=== PATIENT | male | born 1940 | race Caucasian/White ===

== ENCOUNTER 2019-03-12 05:40 | Inpatient (IN) | payer MEDICARE ==
[2019-03-07 15:26] LABS: BASOPHILS % (AUTO) 0.5 % (0-1); EOSINOPHILS # (AUTO) 0.4 X10'3 (0-0.9); EOSINOPHILS % (AUTO) 5.8 % (0-6); LYMPHOCYTES % (AUTO) 13.2 % (21-51); MEAN CORPUSCULAR HEMOGLOBIN 32.1 PG (27.0-31.0); MEAN CORPUSCULAR HGB CONC 33.6 g/dL (33.0-36.5); MEAN CORPUSCULAR VOLUME 95.6 FL (78-98); MEAN PLATELET VOLUME 7.5 FL (7.4-10.4); MONOCYTES % (AUTO) 13.6 % (2-12); NEUTROPHILS # (AUTO) 4.9 X10'3 (1.8-7.7); NEUTROPHILS % (AUTO) 66.9 % (42-75); PRE OP HEMATOCRIT 41.6 % (42.0-52.0); PRE OP PLATELET COUNT 214 X10'3 (140-440); RED BLOOD COUNT 4.36 X10'6 (4.70-6.10); RED CELL DISTRIBUTION WIDTH 13.7 % (11.5-14.5)
[2019-03-07 15:40] LABS: ALBUMIN 3.8 G/DL (3.4-5.0); ALBUMIN/GLOBULIN RATIO 0.9 (1.1-1.5); ALKALINE PHOSPHATASE 55 IU/L (46-116); BLOOD UREA NITROGEN 22 MG/DL (7-18); BUN/CREATININE RATIO 21.8 (5.4-32.0); CALCIUM 9.8 MG/DL (8.5-10.1); CHLORIDE 107 MMOL/L (99-107); CREATININE 1.01 MG/DL (0.60-1.10); PRE OP ALT 29 U/L (30-65); PRE OP ANION GAP 9 (8-16); PRE OP AST 18 U/L (10-37); PRE OP BILIRUB, TOTAL 0.3 MG/DL (0.0-1.0); PRE OP GLUCOSE 117 MG/DL (70-104); PRE OP POTASSIUM 3.9 MMOL/L (3.4-5.1); PRE OP SODIUM 143 MMOL/L (135-145); TOTAL CARBON DIOXIDE 26.9 MMOL/L (24-32); eGFR 72 ML/MIN
[~2019-03-12] VITALS: Ht 175.3 cm; Wt 88.5 kg
[2019-03-12] VITALS (18 sets, daily range): BP systolic 97–118; BP diastolic 58–78
[~2019-03-12 05:40] MED LIST: ALEN70TA60 PO; AMLO10TA PO; FINA5TAB11 PO; FLO0.4C PO; cefazolin/dext.iso 2gm/50ml 50 ML IV ONE; famotidine 20mg tablet PO ONE; ringers solution, lacted 1,000 ML IV SCH; tranexamic acid inj. 1,000 MG in normal saline 100 ML IV ONE; vancomycin inj 1,500 MG in normal saline 300ml IV soln IV ONE
[2019-03-12] MEDS ORDERED: LIDOcaine 1% (10mg/ml) 2ml vial ONE (06:03)
[2019-03-12] MEDS ORDERED: ketorolac trometh. 30mg/ml inj. ONE (07:37)
[2019-03-12] MEDS ORDERED: epiNEPHrine 1 mg/ml inj ONE (07:37)
[2019-03-12] MEDS ORDERED: ceFAZolin 1000mg inj ONE (07:38)
[2019-03-12] MEDS ORDERED: morphine 10mg/ml inj. ONE (07:38)
[2019-03-12] MEDS ORDERED: vancomycin 1,000mg inj ONE (07:38)
[2019-03-12] MEDS ORDERED: ROPIVAcaine 0.5% (5mg/ml) 30ml vial ONE ×2 (07:38→10:48)
[2019-03-12] MEDS ORDERED: mineral oil 10ml sterile, topical TP ONE (08:00)
[2019-03-12] MEDS ORDERED: MIDAZolam 1mg/ml 10ml vial ONE (08:02)
[2019-03-12] MEDS ORDERED: fentaNYL/PF 50MCG/1 ML 2ML syringe ONE ×2 (08:02→10:45)
[2019-03-12] MEDS ORDERED: ringers solution, lacted 1,000 ML IV SCH (09:03)
[2019-03-12] MEDS ORDERED: ondansetron/PF 4mg/2ml inj IV PRN ×2 (09:05→12:10)
[2019-03-12] MEDS ORDERED: meperidine/PF 25mg/ml syringe IV PRN ×3 (09:05)
[2019-03-12] MEDS ORDERED: proCHLORperazine 10 MG/2 ml inj IV PRN (09:05)
[2019-03-12] MEDS ORDERED: morphine 4 MG/ML inj SYRINge IV PRN ×2 (09:05)
[2019-03-12] MEDS ORDERED: Thrombin (Bovine) 5,000 unit vial TP ONE (09:22)
[2019-03-12] MEDS ORDERED: calcium chloride 100 MG/1 ML inj IV ONE (09:23)
[2019-03-12] MEDS ORDERED: LIDOcaine 1%/PF 5ML 10 MG/ML VIAL ONE (10:47)
[2019-03-12] MEDS ORDERED: propofol inj 20 ML IV ONE (10:47)
--- NOTE | 2019-03-12 11:42 | NUR ---
ARRIVED IN PACU VIA BED FROM OR. DR WILLIS IN ATTENDANCE. REPORT RECEIVED. VS STABLE. PT SLEEPY. MOVES ALL TOES AND FULL SENSATION TO FEET PRESENT. FEET WARM AND PINK. ONLY C/O MILD PAIN ANTERIOR KNEE.
--- NOTE | 2019-03-12 12:08 | NUR ---
SLEEPING COMFORTABLY. VS STABLE
[2019-03-12] MEDS ORDERED: magnesium hydroxide 30ml (MOM) UD suspension PO PRN (12:10)
[2019-03-12] MEDS ORDERED: bisacodyl 10mg suppository rectal RC PRN (12:10)
[2019-03-12] MEDS ORDERED: diphenhydrAMINE 25mg capsule PO PRN ×2 (12:10)
[2019-03-12] MEDS ORDERED: HYDROmorphone 1 mg/ml syringe IV PRN (12:10)
[2019-03-12] MEDS ORDERED: acetaminophen 325mg tablet PO PRN (12:10)
[2019-03-12] MEDS ORDERED: HYDROmorphone inj. 0.5 MG/0.5 ML DISP.SYRIN IV PRN (12:10)
[2019-03-12] MEDS: ROPIVAcaine 0.2%/PF PAIN PUMP 550 ML ADDCANAL SCH (12:34)
[2019-03-12] MEDS ORDERED: ketorolac trometh. 30mg/ml inj. IV ONE (12:40)
[2019-03-12] MEDS ORDERED: acetaminophen 1,000mg/100ml IV 100 ML IV ONE (12:40)
--- NOTE | 2019-03-12 13:02 | NUR ---
PAIN IMPROVED. VS STABLE ON ARRIVAL TO ROOM. TO FLOOR, NURSE IN ROOM TO ACCEPT PT
--- NOTE | 2019-03-12 13:02 | NUR ---
TEMP 36.4
[2019-03-12] MEDS: gabapentin 300mg capsule PO SCH ×2 (14:19→20:24)
[2019-03-12] MEDS: acetaminophen 325mg tablet PO SCH ×2 (14:21→20:00)
[2019-03-12] MEDS: potassium cl 20mEq in 1/2 NS 1,000 ML IV SCH ×2 (16:00→20:07)
[2019-03-12] MEDS: ceFAZolin 1GM/D5W- ADD-VANTAGE 50 ML IV SCH ×2 (16:08→23:45)
--- NOTE | 2019-03-12 18:25 | NUR ---
Received report from Bj ROGERS, assumed care of patient.
--- NOTE | 2019-03-12 18:25 | NUR ---
Problems reprioritized. Patient report given, questions answered & plan of care reviewed with Willow Perea RN.
[2019-03-12] MEDS ORDERED: vancomycin/NS 1 GM ADD-VANTAGE 250 ML IV SCH (20:00)
[2019-03-12] MEDS: sennosides 8.6mg tablet PO SCH (20:24)
--- NOTE | 2019-03-12 20:28 | NUR ---
Tylenol held at this time r/t patient meeting daily max dose.
[2019-03-13 02:00] VITALS: BP 120/74
[2019-03-13] MEDS: acetaminophen 325mg tablet PO SCH ×4 (02:00→20:26)
[2019-03-13] MEDS ORDERED: non-formulary drug (Alendronate Sodium* (Fosamax*) 1 TABLET) PO SCH (02:35)
[2019-03-13] MEDS: potassium cl 20mEq in 1/2 NS 1,000 ML IV SCH ×2 (02:46→13:18)
[2019-03-13] MEDS: oxyCODONE IR 5mg (immed. release) tablet PO PRN ×3 (05:12→20:27)
[2019-03-13 06:00] VITALS: BP 128/76
[2019-03-13 06:14] LABS: BASOPHILS % (AUTO) 0.1 % (0-1); EOSINOPHILS % (AUTO) 0.3 % (0-6); HEMATOCRIT 31.8 % (42.0-52.0); HEMOGLOBIN 10.8 g/dl (14.0-17.9); LYMPHOCYTES # (AUTO) 0.6 X10'3 (1.1-4.8); LYMPHOCYTES % (AUTO) 6.2 % (21-51); MEAN CORPUSCULAR HEMOGLOBIN 32.5 PG (27.0-31.0); MEAN CORPUSCULAR HGB CONC 33.9 g/dL (33.0-36.5); MEAN PLATELET VOLUME 8.2 FL (7.4-10.4); MONOCYTES # (AUTO) 1.4 X10'3 (0-0.9); MONOCYTES % (AUTO) 13.8 % (2-12); NEUTROPHILS # (AUTO) 8.2 X10'3 (1.8-7.7); NEUTROPHILS % (AUTO) 79.6 % (42-75); PLATELET COUNT 171 X10'3 (140-440); RED BLOOD COUNT 3.32 X10'6 (4.70-6.10); RED CELL DISTRIBUTION WIDTH 13.5 % (11.5-14.5); WHITE BLOOD COUNT 10.3 X10'3 (4.5-11.0)
--- NOTE | 2019-03-13 06:14 | NUR ---
Report given to Raffy ROGERS. Addendum: 03/13/19 at 0620 by Willow Vora RN Report given to Bj ROGERS not Raffy ROGERS.
[2019-03-13 06:35] LABS: ANION GAP 7 (8-16); CHLORIDE 108 MMOL/L (99-107); SODIUM 141 MMOL/L (135-145); TOTAL CARBON DIOXIDE 26.2 MMOL/L (24-32)
--- NOTE | 2019-03-13 06:58 | NUR ---
Patient in room ORTHO 4016. I have received report from Willow Perea RN and had the opportunity to ask questions and assume patient care.
[2019-03-13] MEDS: gabapentin 300mg capsule PO SCH ×3 (07:32→20:26)
[2019-03-13] MEDS: finasteride 5mg tablet PO SCH (07:32)
[2019-03-13] MEDS: amLODIPine 5mg tablet PO SCH (07:33)
[2019-03-13] MEDS: enoxaparin 40mg/0.4ml syringe SQ SCH (07:36)
[2019-03-13 09:49] VITALS: BP 130/68
--- NOTE | 2019-03-13 12:00 | NUR ---
f/c d/c per orthopedic DR, will continue to monitor
[2019-03-13 14:04] VITALS: BP 132/69
[2019-03-13 18:00] VITALS: BP 125/70
--- NOTE | 2019-03-13 18:30 | NUR ---
Received report from Bj ROGERS. assumed care of patient
--- NOTE | 2019-03-13 18:42 | NUR ---
Problems reprioritized. Patient report given, questions answered & plan of care reviewed with Lainey RN.
[2019-03-13] MEDS: sennosides 8.6mg tablet PO SCH (20:25)
[2019-03-13] MEDS: celeCOXIB 100mg capsule PO SCH (20:26)
[2019-03-13] MEDS: tamsulosin 0.4mg capsule PO SCH (20:26)
[2019-03-13 22:00] VITALS: BP 129/67
[2019-03-14] MEDS: acetaminophen 325mg tablet PO SCH ×2 (01:57→08:39)
[2019-03-14] MEDS: oxyCODONE IR 5mg (immed. release) tablet PO PRN ×2 (04:21→08:49)
[2019-03-14 05:19] LABS: BASOPHILS % (AUTO) 0.2 % (0-1); EOSINOPHILS # (AUTO) 0.3 X10'3 (0-0.9); HEMATOCRIT 28.7 % (42.0-52.0); HEMOGLOBIN 9.8 g/dl (14.0-17.9); LYMPHOCYTES # (AUTO) 0.8 X10'3 (1.1-4.8); LYMPHOCYTES % (AUTO) 9.4 % (21-51); MEAN CORPUSCULAR HEMOGLOBIN 32.9 PG (27.0-31.0); MEAN CORPUSCULAR HGB CONC 34.1 g/dL (33.0-36.5); MEAN CORPUSCULAR VOLUME 96.6 FL (78-98); MEAN PLATELET VOLUME 7.9 FL (7.4-10.4); MONOCYTES # (AUTO) 1.5 X10'3 (0-0.9); NEUTROPHILS # (AUTO) 5.7 X10'3 (1.8-7.7); NEUTROPHILS % (AUTO) 68.4 % (42-75); PLATELET COUNT 138 X10'3 (140-440); RED BLOOD COUNT 2.97 X10'6 (4.70-6.10); RED CELL DISTRIBUTION WIDTH 13.5 % (11.5-14.5); WHITE BLOOD COUNT 8.3 X10'3 (4.5-11.0)
[2019-03-14 06:00] VITALS: BP 152/68
--- NOTE | 2019-03-14 06:15 | NUR ---
Patient in room ORTHO 4016. I have received report from [facility] and had the opportunity to ask questions and assume patient care.
--- NOTE | 2019-03-14 06:20 | NUR ---
Gave report to Lianne ROGERS.
[2019-03-14 08:37] VITALS: BP 144/70
[2019-03-14] MEDS: amLODIPine 5mg tablet PO SCH (08:38)
[2019-03-14] MEDS: gabapentin 300mg capsule PO SCH ×3 (08:38→20:08)
[2019-03-14] MEDS: celeCOXIB 100mg capsule PO SCH ×2 (08:38→20:08)
[2019-03-14] MEDS: finasteride 5mg tablet PO SCH (08:39)
[2019-03-14] MEDS: enoxaparin 40mg/0.4ml syringe SQ SCH (08:41)
[2019-03-14 10:00] VITALS: BP 118/64
[2019-03-14] MEDS: ROPIVAcaine 0.2%/PF PAIN PUMP 550 ML ADDCANAL SCH (11:03)
[2019-03-14] MEDS ORDERED: acetaminophen 325mg tablet PO PRN (12:10)
--- NOTE | 2019-03-14 16:24 | NUR ---
CPM was on for 2 hours. Removed CPM.
[2019-03-14 17:00] VITALS: BP 113/63
--- NOTE | 2019-03-14 18:00 | NUR ---
Received report from Lianne ROGERS. Assumed care of patient
--- NOTE | 2019-03-14 18:03 | NUR ---
Problems reprioritized. Patient report given, questions answered & plan of care reviewed with Lainey.
--- NOTE | 2019-03-14 20:00 | NUR ---
Offered patient milk of magnesia. patient declined at this time.
[2019-03-14] MEDS: tamsulosin 0.4mg capsule PO SCH (20:08)
[2019-03-14] MEDS: sennosides 8.6mg tablet PO SCH (20:09)
[2019-03-14 22:00] VITALS: BP 128/60
[2019-03-15] MEDS: ROPIVAcaine 0.2%/PF PAIN PUMP 550 ML ADDCANAL SCH (03:54)
[2019-03-15 05:15] LABS: BASOPHILS % (AUTO) 0.2 % (0-1); EOSINOPHILS # (AUTO) 0.3 X10'3 (0-0.9); EOSINOPHILS % (AUTO) 3.8 % (0-6); HEMATOCRIT 26.7 % (42.0-52.0); HEMOGLOBIN 9.1 g/dl (14.0-17.9); LYMPHOCYTES # (AUTO) 0.8 X10'3 (1.1-4.8); LYMPHOCYTES % (AUTO) 8.8 % (21-51); MEAN CORPUSCULAR HEMOGLOBIN 32.7 PG (27.0-31.0); MEAN CORPUSCULAR HGB CONC 34.1 g/dL (33.0-36.5); MEAN PLATELET VOLUME 8.2 FL (7.4-10.4); MONOCYTES # (AUTO) 1.2 X10'3 (0-0.9); MONOCYTES % (AUTO) 13.3 % (2-12); NEUTROPHILS # (AUTO) 6.5 X10'3 (1.8-7.7); NEUTROPHILS % (AUTO) 73.9 % (42-75); PLATELET COUNT 135 X10'3 (140-440); RED BLOOD COUNT 2.78 X10'6 (4.70-6.10); RED CELL DISTRIBUTION WIDTH 13.4 % (11.5-14.5); WHITE BLOOD COUNT 8.8 X10'3 (4.5-11.0)
[2019-03-15 06:00] VITALS: BP 145/71
--- NOTE | 2019-03-15 06:20 | NUR ---
Patient in room ORTHO 4016. I have received report from [facility] and had the opportunity to ask questions and assume patient care.
--- NOTE | 2019-03-15 06:21 | NUR ---
Gave report to Lianne ROGERS.
[2019-03-15] MEDS: celeCOXIB 100mg capsule PO SCH (07:57)
[2019-03-15] MEDS: gabapentin 300mg capsule PO SCH ×2 (07:57→13:03)
[2019-03-15] MEDS: amLODIPine 5mg tablet PO SCH (07:59)
[2019-03-15] MEDS: finasteride 5mg tablet PO SCH (07:59)
[2019-03-15] MEDS: enoxaparin 40mg/0.4ml syringe SQ SCH (08:00)
[2019-03-15] MEDS: oxyCODONE IR 5mg (immed. release) tablet PO PRN ×2 (09:17→14:22)
[2019-03-15 10:00] VITALS: BP 127/67
--- NOTE | 2019-03-15 14:18 | NUR ---
Problems reprioritized. Patient report given, questions answered & plan of care reviewed with Lisa at [facility].
--- NOTE | 2019-03-15 15:41 | NUR ---
Pt was picked up for transport to [facility]. Pt is alert, oriented and does not have c/o discomfort at this time. All of pt's belongings were returned to pt.
== END 2019-03-15 15:50 | DRG 470 ==
LOC: PAS IN 05:40 → EDSTATUS 08:30 → ORTHO 4S 13:15
PROVIDERS: ADMIT Orthopaedic Surgery; ATTEND Orthopaedic Surgery
PROC: 3E0T3BZ Introduction of Anesthetic Agent into Peripheral Nerves and Plexi, Percutaneous Approach (ICD-10-PCS; 2019-03-12)
PROC: 8E0Y0CZ Robotic Assisted Procedure of Lower Extremity, Open Approach (ICD-10-PCS; 2019-03-12)
PROC: 0SRC069 Replacement of Right Knee Joint with Oxidized Zirconium on Polyethylene Synthetic Substitute, Cemented, Open Approach (ICD-10-PCS; principal; 2019-03-12 07:50)
DX: M17.11 Unilateral primary osteoarthritis, right knee (principal); D62 Acute posthemorrhagic anemia; G62.9 Polyneuropathy, unspecified; I10 Essential (primary) hypertension; M81.0 Age-related osteoporosis without current pathological fracture; M21.161 Varus deformity, not elsewhere classified, right knee; N40.0 Benign prostatic hyperplasia without lower urinary tract symptoms; Z96.652 Presence of left artificial knee joint; Z90.49 Acquired absence of other specified parts of digestive tract; Z86.73 Personal history of transient ischemic attack (TIA), and cerebral infarction without residual deficits; Z79.899 Other long term (current) drug therapy
CPT/HCPCS: 36415; 80051; 80053; 82948; 85025; 87081; 93005; 97110; 97112; 97116; 97161; 97530; A4215; A4615; A6454; A7000; C1713; C1758; C1776; G0378; J0131; J0171; J0690; J1170; J1650; J1885; J2001; J2175; J2250; J2270; J2704; J2795; J3010; J3370; J3480; J7120

== ENCOUNTER 2024-05-20 12:58 | Inpatient (IN) | payer MEDICARE ==
[~2024-05-20] VITALS: Ht 175.3 cm; Wt 90.9 kg
[~2024-05-20 12:58] MED LIST changes: -cefazolin/dext.iso 2gm/50ml 50 ML IV ONE; -famotidine 20mg tablet PO ONE; -ringers solution, lacted 1,000 ML IV SCH; -tranexamic acid inj. 1,000 MG in normal saline 100 ML IV ONE; -vancomycin inj 1,500 MG in normal saline 300ml IV soln IV ONE
[2024-05-20 13:55] LABS: BASOPHILS % (AUTO) 0.3 % (0-1); EOSINOPHILS # (AUTO) 0.1 X10'3 (0-0.9); EOSINOPHILS % (AUTO) 0.9 % (0-6); HEMATOCRIT 39.7 % (42.0-52.0); HEMOGLOBIN 12.9 g/dl (14.0-17.9); LYMPHOCYTES # (AUTO) 0.5 X10'3 (1.1-4.8); LYMPHOCYTES % (AUTO) 4.1 % (21-51); MEAN CORPUSCULAR HEMOGLOBIN 31.7 PG (27.0-31.0); MEAN CORPUSCULAR HGB CONC 32.5 g/dL (33.0-36.5); MEAN CORPUSCULAR VOLUME 97.6 FL (78-98); MEAN PLATELET VOLUME 7.9 FL (7.4-10.4); MONOCYTES # (AUTO) 1.2 X10'3 (0-0.9); MONOCYTES % (AUTO) 9.4 % (2-12); NEUTROPHILS # (AUTO) 10.9 X10'3 (1.8-7.7); NEUTROPHILS % (AUTO) 85.3 % (42-75); PLATELET COUNT 183 X10'3 (140-440); RED BLOOD COUNT 4.07 X10'6 (4.70-6.10); RED CELL DISTRIBUTION WIDTH 13.7 % (11.5-14.5); WHITE BLOOD COUNT 12.8 X10'3 (4.5-11.0)
[2024-05-20 14:20] LABS: ALBUMIN 3.4 G/DL (3.4-5.0); ANION GAP 10 (8-16); BLOOD UREA NITROGEN 20 MG/DL (7-18); BUN/CREATININE RATIO 18.9 (10.0-20.0); CALCIUM 8.9 MG/DL (8.5-10.1); CHLORIDE 104 MMOL/L (99-107); CREATININE 1.06 MG/DL (0.60-1.10); GLUCOSE 164 MG/DL (70-104); MAGNESIUM 2.2 MG/DL (1.5-2.4); POTASSIUM 4.1 MMOL/L (3.5-5.1); PRO BRAIN NATRIURETIC PEPTIDE 226 PG/ML (0-450); SODIUM 140 MMOL/L (135-145); TOTAL CARBON DIOXIDE 26.3 MMOL/L (24-32); eCRCL 55 ML/MIN; eGFR 67 ML/MIN
[2024-05-20] MEDS: morphine 10mg/ml inj. IV ONE (14:20)
[2024-05-20] MEDS: ondansetron/PF 4mg/2ml inj IV ONE (14:20)
[2024-05-20] MEDS: normal saline 1000ML IV soln IV ONE (14:20)
[2024-05-20] MEDS: morphine 4 MG/ML inj SYRINge IV ONE (15:08)
[2024-05-20] MEDS ORDERED: potassium Cl 40MEQ/1/2NS 520ml 520 ML IV PRN (15:45)
[2024-05-20] MEDS ORDERED: magnesium Cl slow-release 64mg tablet PO PRN (15:45)
[2024-05-20] MEDS ORDERED: magnesium hydroxide 30ml (MOM) UD suspension PO PRN (15:45)
[2024-05-20] MEDS ORDERED: potassium Cl 20 mEq SR tablet PO PRN ×2 (15:45)
[2024-05-20] MEDS ORDERED: acetaminophen 325mg tablet PO PRN ×2 (15:45)
[2024-05-20] MEDS ORDERED: magnesium sulf-water 4G/100mL 100 ML IV PRN (15:45)
[2024-05-20] MEDS: normal saline 1000ml 1,000 ML IV SCH (15:45)
[2024-05-20] MEDS ORDERED: ondansetron/PF 4mg/2ml inj IV PRN (15:45)
[2024-05-20] MEDS ORDERED: bisacodyl 10mg suppository rectal RC PRN (15:45)
[2024-05-20] MEDS ORDERED: magnesium sulf-water 2g/50mL 50 ML IV PRN (15:45)
[2024-05-20] MEDS: heparin, porcine 5000 units/ml vial SQ SCH (22:34)
[2024-05-20] MEDS: morphine 2 MG/ML inj. syringe IV PRN (23:20)
[2024-05-21] VITALS (32 sets, daily range): BP systolic 96–190; BP diastolic 51–95; PULSE 81–115; RESP 14–29; TEMP 98–99.1; O2SAT 89–97
[2024-05-21] MEDS: HYDROcodone/acetaminophen 10/325mg tab PO PRN (02:08)
[2024-05-21] MEDS: hydrALAZINE 20mg/ml inj. IV ONE (02:56)
[2024-05-21 06:48] LABS: ALANINE AMINOTRANSFERASE 22 U/L (12-78); ALBUMIN 2.9 G/DL (3.4-5.0); ALBUMIN/GLOBULIN RATIO 0.9 (1.1-1.5); ALKALINE PHOSPHATASE 58 IU/L (46-116); ANION GAP 9 (8-16); ASPARTATE AMINO TRANSFERASE 47 U/L (10-37); BILIRUBIN,TOTAL 0.4 MG/DL (0.1-1.0); BLOOD UREA NITROGEN 18 MG/DL (7-18); BUN/CREATININE RATIO 20.2 (10.0-20.0); CALCIUM 8.4 MG/DL (8.5-10.1); CHLORIDE 108 MMOL/L (99-107); CREATININE 0.89 MG/DL (0.60-1.10); GLUCOSE 137 MG/DL (70-104); SODIUM 140 MMOL/L (135-145); TOTAL CARBON DIOXIDE 23.2 MMOL/L (24-32); TOTAL PROTEIN 6.3 G/DL (6.4-8.2); eCRCL 65 ML/MIN; eGFR 82 ML/MIN
[2024-05-21 06:51] LABS: BASOPHILS % (AUTO) 0.2 % (0-1); EOSINOPHILS # (AUTO) 0.1 X10'3 (0-0.9); EOSINOPHILS % (AUTO) 0.8 % (0-6); HEMATOCRIT 37.3 % (42.0-52.0); HEMOGLOBIN 11.9 g/dl (14.0-17.9); LYMPHOCYTES # (AUTO) 0.5 X10'3 (1.1-4.8); LYMPHOCYTES % (AUTO) 4.3 % (21-51); MEAN CORPUSCULAR HEMOGLOBIN 31.7 PG (27.0-31.0); MEAN CORPUSCULAR HGB CONC 31.8 g/dL (33.0-36.5); MEAN CORPUSCULAR VOLUME 99.7 FL (78-98); MEAN PLATELET VOLUME 8.5 FL (7.4-10.4); MONOCYTES # (AUTO) 1.2 X10'3 (0-0.9); MONOCYTES % (AUTO) 10.7 % (2-12); NEUTROPHILS # (AUTO) 9.5 X10'3 (1.8-7.7); PLATELET COUNT 182 X10'3 (140-440); RED BLOOD COUNT 3.74 X10'6 (4.70-6.10); RED CELL DISTRIBUTION WIDTH 14.9 % (11.5-14.5); WHITE BLOOD COUNT 11.3 X10'3 (4.5-11.0)
[2024-05-21 07:05] LABS: POTASSIUM 4.6 MMOL/L (3.5-5.1)
[2024-05-21] MEDS ORDERED: ceFAZolin 1000mg inj ONE ×3 (12:16→15:32)
[2024-05-21] MEDS ORDERED: iohexol 300mg/ml 100ml inj. ONE (12:24)
[2024-05-21 13:20] LABS: BILIRUBIN,URINE SMALL (Neg); CLARITY,URINE CLOUDY (Clear); COLOR,URINE YELLOW (Yellow); GLUCOSE, URINE NEGATIVE (Neg); KETONES,URINE NEGATIVE (Neg); LEUKOCYTE ESTERASE ,URINE NEGATIVE (Neg); NITRITES, URINE NEGATIVE (Neg); OCCULT BLOOD,URINE LARGE (Neg); PH,URINE 5.5 (4.8-8.0); PROTEIN,URINE 100 mg/dl (Neg); UROBILINOGEN,URINE 0.2 E.U/dL (0.2-1.0)
[2024-05-21 13:23] LABS: UA COLLECTION TYPE FOLEY CATH
[2024-05-21 13:29] LABS: SQUAMOUS EPITHELIAL CELL,UR NONE SEEN /LPF (FEW)
[2024-05-21 13:30] LABS: WBC,URINE 20-30 /HPF (0-4)
[2024-05-21 13:31] LABS: RBC,URINE 20-50 /HPF (0-2)
[2024-05-21 13:37] LABS: URINE AMPHETAMINE SCREEN NEGATIVE (Neg); URINE BARBITUATE SCREEN NEGATIVE (Neg); URINE BENZODIAZEPINES SCREEN NEGATIVE (Neg); URINE CANNABINOID SCREEN NEGATIVE (Neg); URINE COCAINE SCREEN NEGATIVE (Neg); URINE METHADONE SCREEN NEGATIVE (Neg); URINE OPIATE SCREEN POSITIVE (Neg); URINE PHENCYCLIDINE SCREEN NEGATIVE (Neg)
[2024-05-21 13:55] LABS: ABG BASE EXCESS -1.6 mmol/L (-2.0-3.0); ABG HCO3 24.8 mmol/L (21.0-28.0); ABG OXYGEN SATURATION 88.9 % (94.0-98.0); ABG PCO2 (T) 48.4 mmHg (35.0-48.0); ABG PH (T) 7.326 (7.350-7.450); ABG PO2 (T) 55.5 mmHg (83.0-108.0); ALLEN'S TEST POSITIVE; FCOHb 0.8 % (0.5-1.5); FLOW 2 L/min; FMetHb 0.3 % (0.0-1.5); FO2Hb 87.9 % (94.0-98.0); MODE NASAL CANNULA; PATIENT TEMPERATURE 36.7; TOTAL HEMOGLOBIN 11.8 G/dl (13.5-17.5)
[2024-05-21 13:59] LABS: BACTERIA,URINE FEW /HPF (Neg); CAL OXALATE CRYSTALS 3+ /HPF (NEGATIVE)
[2024-05-21] MEDS ORDERED: sevoflurane 250ml liquid IH ONE (15:11)
[2024-05-21] MEDS ORDERED: propofol inj 20 ML IV ONE (15:32)
[2024-05-21] MEDS ORDERED: fentaNYL/PF 50MCG/1 ML 2ML syringe ONE (15:33)
[2024-05-21] MEDS ORDERED: metoprolol tartrate 1mg/ml inj IV PRN (15:40)
[2024-05-21] MEDS: ipratropium/albuterol 3ml nebule NEB SCH (16:00)
[2024-05-21] MEDS ORDERED: ringers solution, lacted 1,000 ML IV SCH (17:55)
[2024-05-21] MEDS ORDERED: meperidine/PF 25mg/ml syringe IV PRN ×3 (17:55)
[2024-05-21] MEDS ORDERED: labetalol 20mg/4ml (5mg/ml) syringe IV PRN (17:55)
[2024-05-21] MEDS ORDERED: HYDROmorphone/PF 0.2 MG/ML SYRINGE IV PRN ×2 (17:55)
[2024-05-21] MEDS ORDERED: hydrALAZINE 20mg/ml inj. IV PRN (17:55)
[2024-05-21] MEDS ORDERED: ondansetron/PF 4mg/2ml inj IV PRN (17:55)
[2024-05-21] MEDS: acetaminophen 1,000mg/100ml IV 100 ML IV STA (18:00)
[2024-05-21] MEDS: acetaminophen 1,000mg/100ml IV 100 ML IV ONE (19:45)
[2024-05-21] MEDS: methylPREDNISolone sod succ 125mg/2ml vial IV SCH (20:00)
[2024-05-21] MEDS: azithromycin/NS 500mg/250ml 250 ML IV STA (20:18)
[2024-05-22] VITALS (15 sets, daily range): BP systolic 106–130; BP diastolic 55–81; PULSE 85–104; RESP 15–21; TEMP 97.8–98.6; O2SAT 92–98
[2024-05-22 07:30] LABS: ALANINE AMINOTRANSFERASE 27 U/L (12-78); ALBUMIN 2.5 G/DL (3.4-5.0); ALBUMIN/GLOBULIN RATIO 0.7 (1.1-1.5); ALKALINE PHOSPHATASE 50 IU/L (46-116); ANION GAP 11 (8-16); ASPARTATE AMINO TRANSFERASE 44 U/L (10-37); BILIRUBIN,TOTAL 0.3 MG/DL (0.1-1.0); BLOOD UREA NITROGEN 27 MG/DL (7-18); BUN/CREATININE RATIO 19.3 (10.0-20.0); CHLORIDE 109 MMOL/L (99-107); GLUCOSE 184 MG/DL (70-104); POTASSIUM 4.8 MMOL/L (3.5-5.1); SODIUM 143 MMOL/L (135-145); TOTAL CARBON DIOXIDE 23.1 MMOL/L (24-32); TOTAL PROTEIN 5.9 G/DL (6.4-8.2); eCRCL 41 ML/MIN; eGFR 49 ML/MIN
[2024-05-22 07:39] LABS: BASOPHILS % (AUTO) 0 % (0-1); EOSINOPHILS % (AUTO) 0 % (0-6); HEMATOCRIT 30.1 % (42.0-52.0); HEMOGLOBIN 9.9 g/dl (14.0-17.9); LYMPHOCYTES # (AUTO) 0.1 X10'3 (1.1-4.8); LYMPHOCYTES % (AUTO) 1.6 % (21-51); MEAN CORPUSCULAR HEMOGLOBIN 32.2 PG (27.0-31.0); MEAN CORPUSCULAR VOLUME 97.8 FL (78-98); MEAN PLATELET VOLUME 8.5 FL (7.4-10.4); MONOCYTES # (AUTO) 0.3 X10'3 (0-0.9); MONOCYTES % (AUTO) 2.9 % (2-12); NEUTROPHILS # (AUTO) 8.7 X10'3 (1.8-7.7); NEUTROPHILS % (AUTO) 95.5 % (42-75); PLATELET COUNT 133 X10'3 (140-440); RED BLOOD COUNT 3.08 X10'6 (4.70-6.10); RED CELL DISTRIBUTION WIDTH 14.4 % (11.5-14.5); WHITE BLOOD COUNT 9.1 X10'3 (4.5-11.0)
[2024-05-22] MEDS: enoxaparin 40mg/0.4ml syringe SUBCUT SCH (07:48)
[2024-05-22] MEDS: azithromycin/NS 500mg/250ml 250 ML IV SCH (07:49)
[2024-05-22] MEDS: CefTRIAXone 2gm/D5W 50ml BAG 50 ML IV SCH (12:33)
[2024-05-22] MEDS: metoprolol succinate 25mg (24-HOUR) SR. Tablet PO ONE (13:01)
[2024-05-22] MEDS: LidoCAINE 2% Topical Jelly 11mL syringe (UROJET) TOP ONE (21:30)
[2024-05-22] MEDS: PERFLUTREN PROTEIN-A MICROSPHR (Optison) 0.22 MG/ML 3ML VIAL IV ONE (21:31)
[2024-05-22] MEDS: HYDROcodone/acetaminophen 5mg/325mg tablet PO PRN (23:37)
[2024-05-23] VITALS (8 sets, daily range): BP systolic 126–165; BP diastolic 65–94; PULSE 77–86; RESP 16–20; TEMP 97.8–98.4; O2SAT 93–96
[2024-05-23 07:51] LABS: BASOPHILS % (AUTO) 0 % (0-1); EOSINOPHILS % (AUTO) 0 % (0-6); HEMATOCRIT 29.6 % (42.0-52.0); HEMOGLOBIN 9.4 g/dl (14.0-17.9); LYMPHOCYTES # (AUTO) 0.2 X10'3 (1.1-4.8); LYMPHOCYTES % (AUTO) 1.7 % (21-51); MEAN CORPUSCULAR HEMOGLOBIN 31.6 PG (27.0-31.0); MEAN CORPUSCULAR HGB CONC 31.9 g/dL (33.0-36.5); MEAN CORPUSCULAR VOLUME 98.8 FL (78-98); MEAN PLATELET VOLUME 8.5 FL (7.4-10.4); MONOCYTES # (AUTO) 0.5 X10'3 (0-0.9); MONOCYTES % (AUTO) 3.9 % (2-12); NEUTROPHILS # (AUTO) 11.4 X10'3 (1.8-7.7); NEUTROPHILS % (AUTO) 94.4 % (42-75); PLATELET COUNT 176 X10'3 (140-440); RED BLOOD COUNT 2.99 X10'6 (4.70-6.10); RED CELL DISTRIBUTION WIDTH 14.6 % (11.5-14.5)
[2024-05-23 08:17] LABS: ALANINE AMINOTRANSFERASE 25 U/L (12-78); ALBUMIN 2.6 G/DL (3.4-5.0); ALBUMIN/GLOBULIN RATIO 0.7 (1.1-1.5); ALKALINE PHOSPHATASE 52 IU/L (46-116); ANION GAP 9 (8-16); ASPARTATE AMINO TRANSFERASE 34 U/L (10-37); BILIRUBIN,TOTAL 0.2 MG/DL (0.1-1.0); BLOOD UREA NITROGEN 44 MG/DL (7-18); BUN/CREATININE RATIO 26.3 (10.0-20.0); CALCIUM 8.3 MG/DL (8.5-10.1); CHLORIDE 109 MMOL/L (99-107); CREATININE 1.67 MG/DL (0.60-1.10); GLUCOSE 167 MG/DL (70-104); POTASSIUM 5.2 MMOL/L (3.5-5.1); SODIUM 143 MMOL/L (135-145); TOTAL CARBON DIOXIDE 24.9 MMOL/L (24-32); TOTAL PROTEIN 6.2 G/DL (6.4-8.2); eCRCL 35 ML/MIN; eGFR 40 ML/MIN
[2024-05-23] MEDS: metoprolol succinate 25mg (24-HOUR) SR. Tablet PO SCH (09:55)
[2024-05-23] MEDS: furosemide 40mg/4ml inj IV ONE (09:57)
[2024-05-23 13:42] LABS: PRO BRAIN NATRIURETIC PEPTIDE 1208 PG/ML (0-450)
[2024-05-23] MEDS: furosemide 40mg/4ml inj IV SCH (20:08)
[2024-05-24] MEDS: morphine 2 MG/ML inj. syringe IV PRN (01:50)
[2024-05-24] MEDS: amLODIPine 5mg tablet PO ONE (05:53)
[2024-05-24 06:00] VITALS: BP 197/97; PULSE 73; RESP 16; TEMP 97.8; O2SAT 93
[2024-05-24 06:33] LABS: BASOPHILS % (AUTO) 0.1 % (0-1); EOSINOPHILS % (AUTO) 0 % (0-6); HEMATOCRIT 27.4 % (42.0-52.0); LYMPHOCYTES # (AUTO) 0.2 X10'3 (1.1-4.8); LYMPHOCYTES % (AUTO) 2.3 % (21-51); MEAN CORPUSCULAR HEMOGLOBIN 32.4 PG (27.0-31.0); MEAN CORPUSCULAR HGB CONC 32.9 g/dL (33.0-36.5); MEAN CORPUSCULAR VOLUME 98.4 FL (78-98); MEAN PLATELET VOLUME 8.6 FL (7.4-10.4); MONOCYTES # (AUTO) 0.5 X10'3 (0-0.9); MONOCYTES % (AUTO) 5.4 % (2-12); NEUTROPHILS # (AUTO) 8.6 X10'3 (1.8-7.7); NEUTROPHILS % (AUTO) 92.2 % (42-75); PLATELET COUNT 158 X10'3 (140-440); RED BLOOD COUNT 2.79 X10'6 (4.70-6.10); RED CELL DISTRIBUTION WIDTH 14.2 % (11.5-14.5); WHITE BLOOD COUNT 9.4 X10'3 (4.5-11.0)
[2024-05-24 06:55] LABS: ALANINE AMINOTRANSFERASE 28 U/L (12-78); ALBUMIN 2.5 G/DL (3.4-5.0); ALBUMIN/GLOBULIN RATIO 0.7 (1.1-1.5); ALKALINE PHOSPHATASE 55 IU/L (46-116); ANION GAP 7 (8-16); ASPARTATE AMINO TRANSFERASE 30 U/L (10-37); BILIRUBIN,TOTAL 0.3 MG/DL (0.1-1.0); BLOOD UREA NITROGEN 54 MG/DL (7-18); BUN/CREATININE RATIO 36.5 (10.0-20.0); CALCIUM 8.2 MG/DL (8.5-10.1); CHLORIDE 111 MMOL/L (99-107); CREATININE 1.48 MG/DL (0.60-1.10); GLUCOSE 157 MG/DL (70-104); POTASSIUM 5.2 MMOL/L (3.5-5.1); SODIUM 147 MMOL/L (135-145); TOTAL CARBON DIOXIDE 29.3 MMOL/L (24-32); TOTAL PROTEIN 5.9 G/DL (6.4-8.2); eCRCL 39 ML/MIN; eGFR 46 ML/MIN
[2024-05-24 08:00] VITALS: BP_SYST 192; BP_SYST 206; BP_DIAS 104; BP_DIAS 106; PULSE 78; PULSE 82; RESP 6; O2SAT 93
[2024-05-24] MEDS ORDERED: hydrALAZINE 20mg/ml inj. IV PRN ×2 (08:00→12:50)
[2024-05-24] MEDS ORDERED: FLUT1DIS4 INH (08:03)
[2024-05-24] MEDS ORDERED: LEVO750T68 PO (08:03)
[2024-05-24] MEDS ORDERED: PRED10TA23 PO ×2 (08:03→10:57)
[2024-05-24] MEDS ORDERED: ASPI81TA52 PO (08:03)
[2024-05-24] MEDS ORDERED: METO-395 PO (08:03)
[2024-05-24] MEDS ORDERED: ALBU90AE INH (08:03)
[2024-05-24] MEDS ORDERED: HYDR25TA4 PO (08:03)
[2024-05-24] MEDS: amLODIPine 5mg tablet PO SCH (09:00)
[2024-05-24] MEDS: HYDROchlorothiazide 25mg tablet PO SCH (09:01)
[2024-05-24] MEDS ORDERED: FURO-150 PO (10:50)
[2024-05-24] MEDS ORDERED: CEFD300C3 PO (10:57)
[2024-05-24] MEDS: hydrALAZINE 20mg/ml inj. IV ONE (11:17)
[2024-05-24] MEDS: metoprolol succinate 25mg (24-HOUR) SR. Tablet PO ONE (11:18)
[2024-05-24] MEDS: LORazepam 0.5 MG tablet PO PRN (14:07)
[2024-05-24 15:14] VITALS: BP 158/79; PULSE 89; RESP 16; TEMP 98.2; O2SAT 94
[2024-05-25] MEDS ORDERED: METO-395 PO (14:12)
== END 2024-05-24 15:40 | DRG 853 ==
LOC: ER 12:58 → ED HOLD 15:45 → ORTHO 4S 05-21 00:30
PROVIDERS: ADMIT Internal Medicine; ATTEND Nurse Practitioner Family
PROC: BW211ZZ Computerized Tomography (CT Scan) of Abdomen and Pelvis using Low Osmolar Contrast (ICD-10-PCS; 2024-05-21)
PROC: 0QS636Z Reposition Right Upper Femur with Intramedullary Internal Fixation Device, Percutaneous Approach (ICD-10-PCS; principal; 2024-05-21 15:11)
DX: A41.9 Sepsis, unspecified organism (principal); G93.41 Metabolic encephalopathy; S72.21XA Displaced subtrochanteric fracture of right femur, initial encounter for closed fracture; S72.141A Displaced intertrochanteric fracture of right femur, initial encounter for closed fracture; J18.9 Pneumonia, unspecified organism; J96.01 Acute respiratory failure with hypoxia; J96.02 Acute respiratory failure with hypercapnia; J69.0 Pneumonitis due to inhalation of food and vomit; I50.33 Acute on chronic diastolic (congestive) heart failure; E87.29 Other acidosis; N17.9 Acute kidney failure, unspecified; N39.0 Urinary tract infection, site not specified; M81.0 Age-related osteoporosis without current pathological fracture; I11.0 Hypertensive heart disease with heart failure; K52.9 Noninfective gastroenteritis and colitis, unspecified; Z96.653 Presence of artificial knee joint, bilateral; M54.50 Low back pain, unspecified; R26.81 Unsteadiness on feet; D64.9 Anemia, unspecified; E86.0 Dehydration; Z66 Do not resuscitate; G89.29 Other chronic pain; I16.0 Hypertensive urgency; E87.5 Hyperkalemia; N40.1 Benign prostatic hyperplasia with lower urinary tract symptoms; R33.8 Other retention of urine; W18.39XA Other fall on same level, initial encounter; Y93.89 Activity, other specified; Y92.89 Other specified places as the place of occurrence of the external cause; Y99.8 Other external cause status; Z79.51 Long term (current) use of inhaled steroids; Z79.83 Long term (current) use of bisphosphonates; Z79.899 Other long term (current) drug therapy; Z87.891 Personal history of nicotine dependence; T50.995A Adverse effect of other drugs, medicaments and biological substances, initial encounter
CPT/HCPCS: 36415; 36600; 70450; 71045; 71260; 73501; 73552; 74177; 76000; 80048; 80053; 80305; 80320; 81001; 82803; 83605; 83735; 83880; 84145; 84484; 85018; 85025; 87040; 87081; 87088; 92508; 92616; 93005; 93306; 93880; 94640; 94760; 97110; 97161; 97530; 99285; A4215; A4314; A4615; A4618; A6253; A6258; A6449; A6590; A7000; C1713; G0378; J0131; J0360; J0456; J0690; J0696; J1644; J1650; J1940; J2270; J2274; J2405; J2704; J2919; J3010; J7030; J7120; Q9967

== ENCOUNTER 2024-06-24 11:35 | Emergency (ER) | payer MEDICARE ==
[~2024-06-24] VITALS: Ht 170.2 cm; Wt 98.0 kg
[~2024-06-24 11:35] MED LIST changes: +ALBU90AE INH; +ASPI81TA52 PO; +FLUT1DIS4 INH; +FURO-150 PO; +HYDR25TA4 PO; +METO-395 PO; +PRED10TA23 PO
[2024-06-24 15:41] LABS: BASOPHILS % (AUTO) 0.2 % (0-1); EOSINOPHILS # (AUTO) 0.7 X10'3 (0-0.9); EOSINOPHILS % (AUTO) 8.1 % (0-6); HEMATOCRIT 31.9 % (42.0-52.0); HEMOGLOBIN 10.6 g/dl (14.0-17.9); LYMPHOCYTES # (AUTO) 0.6 X10'3 (1.1-4.8); LYMPHOCYTES % (AUTO) 7.4 % (21-51); MEAN CORPUSCULAR HEMOGLOBIN 31.9 PG (27.0-31.0); MEAN CORPUSCULAR HGB CONC 33.2 g/dL (33.0-36.5); MEAN CORPUSCULAR VOLUME 96.1 FL (78-98); MEAN PLATELET VOLUME 7.8 FL (7.4-10.4); MONOCYTES # (AUTO) 1.4 X10'3 (0-0.9); MONOCYTES % (AUTO) 17.4 % (2-12); NEUTROPHILS # (AUTO) 5.6 X10'3 (1.8-7.7); NEUTROPHILS % (AUTO) 66.9 % (42-75); PLATELET COUNT 292 X10'3 (140-440); RED BLOOD COUNT 3.32 X10'6 (4.70-6.10); RED CELL DISTRIBUTION WIDTH 14.6 % (11.5-14.5); WHITE BLOOD COUNT 8.3 X10'3 (4.5-11.0)
[2024-06-24 16:26] LABS: ALANINE AMINOTRANSFERASE 22 U/L (12-78); ALBUMIN 2.6 G/DL (3.4-5.0); ALBUMIN/GLOBULIN RATIO 0.6 (1.1-1.5); ALKALINE PHOSPHATASE 70 IU/L (46-116); ANION GAP 5 (8-16); ASPARTATE AMINO TRANSFERASE 16 U/L (10-37); BILIRUBIN,TOTAL 0.4 MG/DL (0.1-1.0); BLOOD UREA NITROGEN 13 MG/DL (7-18); BUN/CREATININE RATIO 17.3 (10.0-20.0); CALCIUM 8.7 MG/DL (8.5-10.1); CHLORIDE 100 MMOL/L (99-107); CREATININE 0.75 MG/DL (0.60-1.10); GLUCOSE 115 MG/DL (70-104); SODIUM 138 MMOL/L (135-145); TOTAL CARBON DIOXIDE 32.7 MMOL/L (24-32); TOTAL PROTEIN 6.9 G/DL (6.4-8.2); eCRCL 72 ML/MIN; eGFR > 90 ML/MIN
[2024-06-24 16:32] LABS: PRO BRAIN NATRIURETIC PEPTIDE 178 PG/ML (0-450)
[2024-06-24] MEDS ORDERED: HYDROcodone/acetaminophen 5mg/325mg tablet PO ONE (17:00)
[2024-06-24] MEDS ORDERED: HYDROcodone/acetaminophen 5mg/325mg tablet PO PRN (17:20)
[2024-06-24] MEDS ORDERED: CEPH-585 PO (17:56)
[2024-06-24 19:02] VITALS: BP 127/66; PULSE 72; RESP 16; TEMP 98.1; O2SAT 94
[2024-06-27] MEDS ORDERED: ASPI-612 PO (18:39)
[2024-06-27] MEDS ORDERED: HYDR50TA46 PO (18:40)
[2024-06-27] MEDS ORDERED: FLUT1DIS20 INH (18:41)
[2024-06-27] MEDS ORDERED: BACI1CAP6 PO (18:43)
[2024-06-27] MEDS ORDERED: HYDR-3965 PO (18:44)
[2024-06-27] MEDS ORDERED: ACET-1008 PO (18:45)
[2024-06-27] MEDS ORDERED: BISA10SU60 RC (18:47)
[2024-06-27] MEDS ORDERED: MAGN400O6 PO (18:49)
[2024-06-27] MEDS ORDERED: NA P230E RC (18:51)
[2024-06-27] MEDS ORDERED: IPRA3AMP9 IH (18:53)
== END 2024-06-24 19:05 | disposition home or self-care (01) ==
LOC: ER 11:35
DX: M79.604 Pain in right leg (principal); I10 Essential (primary) hypertension; M19.90 Unspecified osteoarthritis, unspecified site; Z98.890 Other specified postprocedural states
CPT/HCPCS: 36415; 71045; 80053; 83880; 84145; 84484; 85025; 93005; 93971; 99285

== ENCOUNTER 2024-08-26 12:16 | Outpatient (CLI) | payer MEDICARE ==
[~2024-08-26 12:16] MED LIST changes: -ALBU90AE INH; -ASPI81TA52 PO; -FLO0.4C PO; -FLUT1DIS4 INH; -FURO-150 PO; -HYDR25TA4 PO; +HYDR50TA4 PO; +HYDR50TA46 PO; -METO-395 PO; +METO-411 PO; -PRED10TA23 PO; +TAMS-55 PO
[2024-08-26] MEDS ORDERED: GADOTERATE MEGLUMINE 7.5 MMOL/15 ML VIAL IV ONE (14:23)
== END 2024-08-26 23:59 | disposition home or self-care (01) ==
LOC: MRI 12:16
PROVIDERS: ATTEND Internal Medicine
DX: S90.932A Unspecified superficial injury of left great toe, initial encounter (principal); M79.672 Pain in left foot; M86.9 Osteomyelitis, unspecified; X58.XXXA Exposure to other specified factors, initial encounter; Y93.89 Activity, other specified; Y92.89 Other specified places as the place of occurrence of the external cause; Y99.8 Other external cause status
CPT/HCPCS: 73720; A9575